=== PATIENT | female | born 1990 | race Caucasian/White ===

== ENCOUNTER 2018-01-25 19:13 | Emergency (ER) | payer MEDICAID ==
[~2018-01-25] VITALS: Ht 165.1 cm; Wt 96.0 kg
[2018-01-25] MEDS ORDERED: normal saline 1000ML IV soln IVB ONE (21:45)
[2018-01-25] MEDS ORDERED: TETanus/Pertussis (Acell)/Diphther VAC/PF (Tdap-Adult) 0.5ml syringe IM ONE (21:50)
[2018-01-25 22:22] LABS: BASOPHILS % (AUTO) 0.3 % (0-1); EOSINOPHILS # (AUTO) 0.1 X10'3 (0-0.9); EOSINOPHILS % (AUTO) 1.1 % (0-6); HEMATOCRIT 42.3 % (35.0-45.0); LYMPHOCYTES # (AUTO) 2.9 X10'3 (1.1-4.8); LYMPHOCYTES % (AUTO) 37.2 % (21-51); MEAN CORPUSCULAR HEMOGLOBIN 26.7 PG (27.0-31.0); MEAN CORPUSCULAR HGB CONC 33.1 % (33.0-36.5); MEAN CORPUSCULAR VOLUME 80.5 FL (78-98); MEAN PLATELET VOLUME 7.2 FL (7.4-10.4); MONOCYTES # (AUTO) 0.3 X10'3 (0-0.9); MONOCYTES % (AUTO) 3.8 % (2-12); NEUTROPHILS # (AUTO) 4.5 X10'3 (1.8-7.7); NEUTROPHILS % (AUTO) 57.6 % (42-75); PLATELET COUNT 356 X10'3 (140-440); RED BLOOD COUNT 5.25 X10'6 (4.20-5.60); RED CELL DISTRIBUTION WIDTH 14.7 % (11.5-14.5); WHITE BLOOD COUNT 7.9 X10'3 (4.5-11.0)
[2018-01-25 22:36] LABS: ALANINE AMINOTRANSFERASE 54 U/L (12-78); ALBUMIN 3.9 G/DL (3.4-5.0); ALKALINE PHOSPHATASE 138 IU/L (46-116); ANION GAP 15 (8-16); ASPARTATE AMINO TRANSFERASE 33 U/L (10-37); BILIRUBIN,TOTAL 0.2 MG/DL (0.1-1.0); BLOOD UREA NITROGEN 13 MG/DL (7-18); BUN/CREATININE RATIO 13.3 (6.6-38.0); CALCIUM 9.2 MG/DL (8.5-10.1); CHLORIDE 108 MMOL/L (99-107); CREATININE 0.98 MG/DL (0.40-0.90); GLUCOSE 78 MG/DL (70-104); SODIUM 145 MMOL/L (135-145); TOTAL CARBON DIOXIDE 21.8 MMOL/L (24-32); TOTAL PROTEIN 7.9 G/DL (6.4-8.2); eGFR 68 ML/MIN
[2018-01-25 22:45] LABS: ETHANOL 0.299 GM/DL (0.0-0.010)
[2018-01-25 22:57] LABS: HCG SERUM QL NEGATIVE
[2018-01-25 23:18] VITALS: BP 124/79
[2018-01-26 00:37] LABS: CLARITY,URINE CLEAR (Clear); COLOR,URINE YELLOW (Yellow); GLUCOSE, URINE NEGATIVE (Neg); KETONES,URINE TRACE mg/dl (Neg); LEUKOCYTE ESTERASE ,URINE NEGATIVE (Neg); NITRITES, URINE NEGATIVE (Neg); OCCULT BLOOD,URINE NEGATIVE (Neg); PH,URINE 5.5 (4.8-8.0); PROTEIN,URINE NEGATIVE (Neg); UROBILINOGEN,URINE 0.2 E.U/dL (0.2-1.0)
[2018-01-26 00:41] LABS: UA COLLECTION TYPE STRAIGHT CATH
[2018-01-26 00:51] LABS: URINE AMPHETAMINE SCREEN NEGATIVE (Neg); URINE BARBITUATE SCREEN NEGATIVE (Neg); URINE BENZODIAZEPINES SCREEN NEGATIVE (Neg); URINE CANNABINOID SCREEN NEGATIVE (Neg); URINE COCAINE SCREEN NEGATIVE (Neg); URINE METHADONE SCREEN NEGATIVE (Neg); URINE OPIATE SCREEN NEGATIVE (Neg); URINE PHENCYCLIDINE SCREEN NEGATIVE (Neg)
== END 2018-01-26 06:23 | disposition home or self-care (01) ==
LOC: ER 19:14
DX: R41.82 Altered mental status, unspecified (principal); F10.129 Alcohol abuse with intoxication, unspecified; J45.909 Unspecified asthma, uncomplicated; F32.9 Major depressive disorder, single episode, unspecified; F41.9 Anxiety disorder, unspecified; F17.200 Nicotine dependence, unspecified, uncomplicated; Z91.040 Latex allergy status; Z90.49 Acquired absence of other specified parts of digestive tract; Y90.9 Presence of alcohol in blood, level not specified
CPT/HCPCS: 36415; 70450; 80053; 80305; 80320; 81003; 84443; 84703; 85025; 90471; 90715; 96360; 99285; J7030

== ENCOUNTER 2018-01-28 01:01 | Emergency (ER) | payer MEDICAID, OTHER | END 2018-01-28 01:35 | disposition left against medical advice (07) | LOC: ER 01:03 | DX: R41.0 Disorientation, unspecified (principal); Z53.21 Procedure and treatment not carried out due to patient leaving prior to being seen by health care provider ==

== ENCOUNTER 2018-03-18 15:39 | Emergency (ER) | payer OTHER ==
[~2018-03-18] VITALS: Ht 565.3 cm; Wt 90.0 kg
[2018-03-18 15:44] VITALS: BP 138/87
[2018-03-18 17:41] LABS: BASOPHILS % (AUTO) 0.7 % (0-1); EOSINOPHILS # (AUTO) 0.1 X10'3 (0-0.9); EOSINOPHILS % (AUTO) 2.2 % (0-6); HEMATOCRIT 38.9 % (35.0-45.0); HEMOGLOBIN 12.9 g/dl (12.0-16.0); LYMPHOCYTES # (AUTO) 2.6 X10'3 (1.1-4.8); LYMPHOCYTES % (AUTO) 41.6 % (21-51); MEAN CORPUSCULAR HEMOGLOBIN 26.4 PG (27.0-31.0); MEAN CORPUSCULAR HGB CONC 33.1 % (33.0-36.5); MEAN CORPUSCULAR VOLUME 79.9 FL (78-98); MEAN PLATELET VOLUME 6.3 FL (7.4-10.4); MONOCYTES # (AUTO) 0.6 X10'3 (0-0.9); MONOCYTES % (AUTO) 9.2 % (2-12); NEUTROPHILS # (AUTO) 2.9 X10'3 (1.8-7.7); NEUTROPHILS % (AUTO) 46.3 % (42-75); PLATELET COUNT 213 X10'3 (140-440); RED BLOOD COUNT 4.88 X10'6 (4.20-5.60); RED CELL DISTRIBUTION WIDTH 22.4 % (11.5-14.5); WHITE BLOOD COUNT 6.2 X10'3 (4.5-11.0)
[2018-03-18 17:56] LABS: ALANINE AMINOTRANSFERASE 29 U/L (12-78); ALBUMIN 3.5 G/DL (3.4-5.0); ALKALINE PHOSPHATASE 100 IU/L (46-116); ANION GAP 11 (8-16); ASPARTATE AMINO TRANSFERASE 29 U/L (10-37); BILIRUBIN,TOTAL 0.2 MG/DL (0.1-1.0); BLOOD UREA NITROGEN 8 MG/DL (7-18); BUN/CREATININE RATIO 11.6 (6.6-38.0); CALCIUM 8.2 MG/DL (8.5-10.1); CHLORIDE 107 MMOL/L (99-107); CREATININE 0.69 MG/DL (0.40-0.90); GLUCOSE 110 MG/DL (70-104); POTASSIUM 3.7 MMOL/L (3.5-5.1); SODIUM 141 MMOL/L (135-145); TOTAL CARBON DIOXIDE 23.5 MMOL/L (24-32); TOTAL PROTEIN 7.1 G/DL (6.4-8.2); eGFR > 90 ML/MIN
[2018-03-18 18:06] LABS: ETHANOL 0.269 GM/DL (0.0-0.010); MAGNESIUM 2.2 MG/DL (1.5-2.4)
[2018-03-18 18:13] LABS: ANISOCYTOSIS 3+; MICROCYTOSIS 1+; PLATELET ESTIMATE NORMAL
[2018-03-18] MEDS ORDERED: ONDA4TAB9 PO (20:58)
[2018-03-18] MEDS ORDERED: CHLO25CA10 PO (20:58)
== END 2018-03-18 21:14 | disposition home or self-care (01) ==
LOC: ER 15:39
DX: F10.129 Alcohol abuse with intoxication, unspecified (principal); F32.9 Major depressive disorder, single episode, unspecified; F41.0 Panic disorder [episodic paroxysmal anxiety]; J45.909 Unspecified asthma, uncomplicated; F17.200 Nicotine dependence, unspecified, uncomplicated; Z90.49 Acquired absence of other specified parts of digestive tract; Z98.51 Tubal ligation status; Z98.84 Bariatric surgery status; Z91.040 Latex allergy status; Y90.9 Presence of alcohol in blood, level not specified
CPT/HCPCS: 36415; 80053; 80320; 83735; 84443; 84484; 85025; 93005; 99285

== ENCOUNTER 2018-03-24 12:10 | Emergency (ER) | payer OTHER ==
[~2018-03-24] VITALS: Ht 568.5 cm; Wt 90.0 kg
[~2018-03-24 12:10] MED LIST: CHLO25CA10 PO; ONDA4TAB9 PO
[2018-03-24 12:26] VITALS: BP 126/97
[2018-03-24 13:52] LABS: BASOPHILS % (AUTO) 0.3 % (0-1); EOSINOPHILS # (AUTO) 0.1 X10'3 (0-0.9); EOSINOPHILS % (AUTO) 1.2 % (0-6); HEMATOCRIT 37.6 % (35.0-45.0); HEMOGLOBIN 12.5 g/dl (12.0-16.0); LYMPHOCYTES # (AUTO) 2.5 X10'3 (1.1-4.8); LYMPHOCYTES % (AUTO) 57.1 % (21-51); MEAN CORPUSCULAR HEMOGLOBIN 26.4 PG (27.0-31.0); MEAN CORPUSCULAR HGB CONC 33.2 % (33.0-36.5); MEAN CORPUSCULAR VOLUME 79.4 FL (78-98); MONOCYTES # (AUTO) 0.4 X10'3 (0-0.9); MONOCYTES % (AUTO) 8.9 % (2-12); NEUTROPHILS # (AUTO) 1.4 X10'3 (1.8-7.7); NEUTROPHILS % (AUTO) 32.5 % (42-75); PLATELET COUNT 314 X10'3 (140-440); RED BLOOD COUNT 4.73 X10'6 (4.20-5.60); RED CELL DISTRIBUTION WIDTH 21.9 % (11.5-14.5); WHITE BLOOD COUNT 4.3 X10'3 (4.5-11.0)
[2018-03-24 14:08] LABS: ALANINE AMINOTRANSFERASE 41 U/L (12-78); ALBUMIN 3.4 G/DL (3.4-5.0); ALBUMIN/GLOBULIN RATIO 0.9 (1.1-1.5); ALKALINE PHOSPHATASE 113 IU/L (46-116); ANION GAP 11 (8-16); ASPARTATE AMINO TRANSFERASE 23 U/L (10-37); BILIRUBIN,TOTAL 0.2 MG/DL (0.1-1.0); BLOOD UREA NITROGEN 7 MG/DL (7-18); BUN/CREATININE RATIO 10.6 (6.6-38.0); CALCIUM 8.2 MG/DL (8.5-10.1); CHLORIDE 104 MMOL/L (99-107); CREATININE 0.66 MG/DL (0.40-0.90); GLUCOSE 87 MG/DL (70-104); SODIUM 138 MMOL/L (135-145); TOTAL CARBON DIOXIDE 22.6 MMOL/L (24-32); TOTAL PROTEIN 7.1 G/DL (6.4-8.2); eGFR > 90 ML/MIN
[2018-03-24] MEDS ORDERED: DIPH25CA83 PO (14:19)
== END 2018-03-24 14:32 | disposition home or self-care (01) ==
LOC: ER 12:10
DX: L29.9 Pruritus, unspecified (principal); J45.909 Unspecified asthma, uncomplicated; Z90.49 Acquired absence of other specified parts of digestive tract; Z98.51 Tubal ligation status; Z91.040 Latex allergy status
CPT/HCPCS: 36415; 80053; 85025; 99284

== ENCOUNTER 2018-03-30 05:14 | Emergency (ER) | payer OTHER ==
[~2018-03-30] VITALS: Ht 162.6 cm; Wt 90.0 kg
[~2018-03-30 05:14] MED LIST changes: +DIPH25CA83 PO
[2018-03-30] MEDS ORDERED: famotidine/PF 10 mg/ml inj IV ONE (05:20)
[2018-03-30] MEDS ORDERED: dexamethasone 4mg/ml inj IV ONE (05:20)
[2018-03-30] MEDS ORDERED: LORazepam 2 mg/ml vial IV ONE (05:20)
[2018-03-30] MEDS ORDERED: normal saline 1000ml 1,000 ML IV ONE (05:25)
[2018-03-30] MEDS ORDERED: tranexamic acid 100mg/ml inj. IV ONE (05:25)
[2018-03-30] MEDS ORDERED: tranexamic acid inj. 800 MG in normal saline 100ml IV soln 100 ML IV ONE (05:35)
[2018-03-30 05:37] LABS: BASOPHILS % (AUTO) 0.3 % (0-1); EOSINOPHILS # (AUTO) 0.2 X10'3 (0-0.9); EOSINOPHILS % (AUTO) 2.2 % (0-6); HEMATOCRIT 38.2 % (35.0-45.0); HEMOGLOBIN 12.6 g/dl (12.0-16.0); LYMPHOCYTES # (AUTO) 5.5 X10'3 (1.1-4.8); LYMPHOCYTES % (AUTO) 50.9 % (21-51); MEAN CORPUSCULAR HGB CONC 32.9 % (33.0-36.5); MEAN CORPUSCULAR VOLUME 79.2 FL (78-98); MONOCYTES # (AUTO) 0.9 X10'3 (0-0.9); MONOCYTES % (AUTO) 8.3 % (2-12); NEUTROPHILS # (AUTO) 4.1 X10'3 (1.8-7.7); NEUTROPHILS % (AUTO) 38.3 % (42-75); PLATELET COUNT 522 X10'3 (140-440); RED BLOOD COUNT 4.83 X10'6 (4.20-5.60); RED CELL DISTRIBUTION WIDTH 21.9 % (11.5-14.5); WHITE BLOOD COUNT 10.8 X10'3 (4.5-11.0)
[2018-03-30 05:46] VITALS: BP 134/79
[2018-03-30 05:52] LABS: ALANINE AMINOTRANSFERASE 30 U/L (12-78); ALBUMIN 3.7 G/DL (3.4-5.0); ALKALINE PHOSPHATASE 125 IU/L (46-116); ANION GAP 14 (8-16); ASPARTATE AMINO TRANSFERASE 39 U/L (10-37); BILIRUBIN,TOTAL 0.6 MG/DL (0.1-1.0); BLOOD UREA NITROGEN 9 MG/DL (7-18); BUN/CREATININE RATIO 12.2 (6.6-38.0); CALCIUM 8.4 MG/DL (8.5-10.1); CHLORIDE 106 MMOL/L (99-107); CREATININE 0.74 MG/DL (0.40-0.90); GLUCOSE 98 MG/DL (70-104); POTASSIUM 3.3 MMOL/L (3.5-5.1); SODIUM 144 MMOL/L (135-145); TOTAL PROTEIN 7.4 G/DL (6.4-8.2); eGFR > 90 ML/MIN
[2018-03-30 06:06] LABS: ETHANOL 0.312 GM/DL (0.0-0.010)
== END 2018-03-30 05:59 | disposition left against medical advice (07) ==
LOC: ER 05:15
DX: T78.40XA Allergy, unspecified, initial encounter (principal); J45.909 Unspecified asthma, uncomplicated; Z98.51 Tubal ligation status; Z90.49 Acquired absence of other specified parts of digestive tract; Z98.84 Bariatric surgery status; Z91.040 Latex allergy status; Y92.9 Unspecified place or not applicable
CPT/HCPCS: 36415; 80053; 80320; 85025; 96365; 96375; 99284; J1100; J2060; J3490; J7030

== ENCOUNTER 2018-06-17 17:15 | Emergency (ER) | payer MEDICAID, OTHER ==
[~2018-06-17 17:15] MED LIST changes: -ONDA4TAB9 PO
[2018-06-17 17:20] VITALS: BP 126/76
[2018-06-17] MEDS ORDERED: tetanus & diphtheria toxoid (Td) vaccine 0.5ml IMVAC ONE (18:45)
[2018-06-17] MEDS ORDERED: DOXY100C43 PO (19:06)
[2018-06-17] MEDS ORDERED: TETanus/Pertussis (Acell)/Diphther VAC/PF (Tdap-Adult) 0.5ml syringe IMVAC ONE (21:35)
== END 2018-06-17 19:19 | disposition home or self-care (01) ==
LOC: ER 17:16
DX: S01.81XA Laceration without foreign body of other part of head, initial encounter (principal); S60.221A Contusion of right hand, initial encounter; L03.90 Cellulitis, unspecified; J45.909 Unspecified asthma, uncomplicated; Z98.0 Intestinal bypass and anastomosis status; Z98.51 Tubal ligation status; Z90.49 Acquired absence of other specified parts of digestive tract; Z98.890 Other specified postprocedural states; Z91.040 Latex allergy status; Z79.899 Other long term (current) drug therapy; X99.1XXA Assault by knife, initial encounter; Y93.89 Activity, other specified; Y92.002 Bathroom of unspecified non-institutional (private) residence as the place of occurrence of the external cause; Y99.8 Other external cause status
CPT/HCPCS: 70450; 90715; 99284

== ENCOUNTER 2018-06-18 16:32 | Emergency (ER) | payer MEDICAID ==
[~2018-06-18] VITALS: Ht 165.1 cm; Wt 89.1 kg
[~2018-06-18 16:32] MED LIST changes: +DOXY100C43 PO
[2018-06-18 16:43] VITALS: BP 120/79
== END 2018-06-18 20:15 | disposition left against medical advice (07) ==
LOC: ER 16:32
DX: F10.239 Alcohol dependence with withdrawal, unspecified (principal); Z53.21 Procedure and treatment not carried out due to patient leaving prior to being seen by health care provider; Y90.9 Presence of alcohol in blood, level not specified

== ENCOUNTER 2018-07-31 20:33 | Emergency (ER) | payer MEDICAID, OTHER ==
[~2018-07-31] VITALS: Ht 162.6 cm; Wt 76.0 kg
[~2018-07-31 20:33] MED LIST changes: -DOXY100C43 PO
--- NOTE | 2018-07-31 20:47 | NUR ---
PATIENT AMBULATED FROM TRIAGE TO ROOM 19 AND SAT IN CHAIR. AMBULATED WNL.
[2018-07-31] MEDS ORDERED: normal saline 1000ML IV soln IVB ONE (21:30)
[2018-07-31] MEDS ORDERED: ondansetron/PF 4mg/2ml inj IV ONE (21:30)
[2018-07-31] MEDS ORDERED: pantoprazole 40 MG vial IV ONE (21:30)
[2018-07-31 22:09] LABS: HEMATOCRIT 38.7 % (35.0-45.0); HEMOGLOBIN 12.9 g/dl (12.0-16.0); MEAN CORPUSCULAR HEMOGLOBIN 27.5 PG (27.0-31.0); MEAN CORPUSCULAR HGB CONC 33.3 % (33.0-36.5); MEAN CORPUSCULAR VOLUME 82.5 FL (78-98); RED BLOOD COUNT 4.69 X10'6 (4.20-5.60)
[2018-07-31 22:16] LABS: ALANINE AMINOTRANSFERASE 119 U/L (12-78); ALBUMIN 3.8 G/DL (3.4-5.0); ALBUMIN/GLOBULIN RATIO 1.1 (1.1-1.5); ALKALINE PHOSPHATASE 133 IU/L (46-116); ANION GAP 14 (8-16); ASPARTATE AMINO TRANSFERASE 187 U/L (10-37); BILIRUBIN,TOTAL 0.6 MG/DL (0.1-1.0); BLOOD UREA NITROGEN 9 MG/DL (7-18); BUN/CREATININE RATIO 13.8 (6.6-38.0); CALCIUM 8.4 MG/DL (8.5-10.1); CHLORIDE 102 MMOL/L (99-107); CREATININE 0.65 MG/DL (0.40-0.90); GLUCOSE 88 MG/DL (70-104); LIPASE 92 U/L (73-393); SODIUM 141 MMOL/L (135-145); TOTAL CARBON DIOXIDE 25.4 MMOL/L (24-32); TOTAL PROTEIN 7.4 G/DL (6.4-8.2); eGFR > 90 ML/MIN
[2018-07-31 22:25] LABS: TOTAL CELLS COUNTED 100
[2018-07-31 22:26] LABS: ANISOCYTOSIS 2+; PLATELET ESTIMATE DECREASED
[2018-07-31] MEDS ORDERED: PANT-47 PO (22:33)
[2018-07-31 22:53] VITALS: BP 109/61
== END 2018-07-31 23:15 | disposition home or self-care (01) ==
LOC: ER 20:33
DX: F10.120 Alcohol abuse with intoxication, uncomplicated (principal); K29.20 Alcoholic gastritis without bleeding; J45.909 Unspecified asthma, uncomplicated; F17.200 Nicotine dependence, unspecified, uncomplicated; Z90.49 Acquired absence of other specified parts of digestive tract; Z98.51 Tubal ligation status; Z91.040 Latex allergy status
CPT/HCPCS: 36415; 80053; 83690; 85025; 96361; 96374; 96375; 99283; C9113; J2405; J7030

== ENCOUNTER 2018-08-02 15:12 | Emergency (ER) | payer MEDICAID, OTHER ==
[~2018-08-02] VITALS: Ht 162.6 cm; Wt 87.0 kg
[~2018-08-02 15:12] MED LIST changes: +PANT-47 PO
[2018-08-02] MEDS ORDERED: charcoal/sorbitol 50gm/240ml suspension PO ONE (15:20)
--- NOTE | 2018-08-02 15:41 | NUR ---
Patient uvaldo flores. patient states she just wants to go home and that she lives with her father.
[2018-08-02 15:43] LABS: HEMATOCRIT 34.8 % (35.0-45.0); HEMOGLOBIN 11.4 g/dl (12.0-16.0); MEAN CORPUSCULAR HEMOGLOBIN 27.2 PG (27.0-31.0); MEAN CORPUSCULAR HGB CONC 32.7 g/dL (33.0-36.5); MEAN CORPUSCULAR VOLUME 83.2 FL (78-98); MEAN PLATELET VOLUME 6.6 FL (7.4-10.4); PLATELET COUNT 65 X10'3 (140-440); RED BLOOD COUNT 4.18 X10'6 (4.20-5.60); RED CELL DISTRIBUTION WIDTH 18.9 % (11.5-14.5); WHITE BLOOD COUNT 3.2 X10'3 (4.5-11.0)
[2018-08-02 15:59] LABS: ALANINE AMINOTRANSFERASE 75 U/L (12-78); ALKALINE PHOSPHATASE 110 IU/L (46-116); ANION GAP 10 (8-16); ASPARTATE AMINO TRANSFERASE 77 U/L (10-37); BILIRUBIN,TOTAL 0.3 MG/DL (0.1-1.0); BLOOD UREA NITROGEN 9 MG/DL (7-18); BUN/CREATININE RATIO 14.8 (6.6-38.0); CALCIUM 7.2 MG/DL (8.5-10.1); CHLORIDE 108 MMOL/L (99-107); CREATININE 0.61 MG/DL (0.40-0.90); GLUCOSE 88 MG/DL (70-104); POTASSIUM 3.5 MMOL/L (3.5-5.1); SODIUM 144 MMOL/L (135-145); TOTAL CARBON DIOXIDE 25.9 MMOL/L (24-32); eGFR > 90 ML/MIN
[2018-08-02 16:08] LABS: ACETAMINOPHEN < 2.0 UG/ML (10-30)
[2018-08-02] MEDS ORDERED: LURA40TA3 PO (16:13)
[2018-08-02] MEDS ORDERED: BENZ-16 PO (16:18)
[2018-08-02] MEDS ORDERED: TRAZ-218 PO (16:18)
[2018-08-02] MEDS ORDERED: [UNRECOGNIZED DRUG - CODE] PO (16:18)
[2018-08-02] MEDS ORDERED: ALBU18HF2 INH (16:18)
[2018-08-02] MEDS ORDERED: normal saline 1000ml 1,000 ML IV ONE (16:25)
[2018-08-02 16:28] LABS: ANISOCYTOSIS 2+; PLATELET ESTIMATE DECREASED; TOTAL CELLS COUNTED 100
[2018-08-02 17:02] LABS: ETHANOL 0.382 GM/DL (0.0-0.010)
[2018-08-02] MEDS ORDERED: BENZ200C53 PO (17:02)
[2018-08-02 17:28] LABS: CLARITY,URINE SLIGHTLY CLOUDY (Clear); COLOR,URINE STRAW (Yellow); GLUCOSE, URINE NEGATIVE (Neg); KETONES,URINE NEGATIVE (Neg); LEUKOCYTE ESTERASE ,URINE NEGATIVE (Neg); NITRITES, URINE NEGATIVE (Neg); OCCULT BLOOD,URINE NEGATIVE (Neg); PH,URINE 5.5 (4.8-8.0); PROTEIN,URINE NEGATIVE (Neg); URINE HCG NEGATIVE (NEG); UROBILINOGEN,URINE 0.2 E.U/dL (0.2-1.0)
[2018-08-02 17:40] LABS: MUCUS STRANDS FEW /LPF (Neg); SQUAMOUS EPITHELIAL CELL,UR MODERATE /LPF (FEW); UA COLLECTION TYPE NON-SPECIFIED; URINE AMPHETAMINE SCREEN NEGATIVE (Neg); URINE BARBITUATE SCREEN NEGATIVE (Neg); URINE BENZODIAZEPINES SCREEN NEGATIVE (Neg); URINE CANNABINOID SCREEN NEGATIVE (Neg); URINE COCAINE SCREEN NEGATIVE (Neg); URINE METHADONE SCREEN NEGATIVE (Neg); URINE OPIATE SCREEN NEGATIVE (Neg); URINE PHENCYCLIDINE SCREEN NEGATIVE (Neg)
[2018-08-02 17:41] LABS: BACTERIA,URINE 2+ /HPF (Neg); RBC,URINE 0-2 /HPF (0-2); WBC,URINE 0-4 /HPF (0-4)
--- NOTE | 2018-08-02 18:46 | NUR ---
Patient lying on her back with eyes closed, equal rise and fall of chest.
--- NOTE | 2018-08-02 20:42 | NUR ---
The patient was moved to the ER overflow area to bed #27. She was argumentative and uncooperative. She is demanding to go home. Staff redirected behavior and reviewed the plan of the care with her.
[2018-08-02] MEDS ORDERED: LORazepam 1 MG tablet PO ONE (21:05)
--- NOTE | 2018-08-02 21:05 | NUR ---
The patient has been cleared by poison control.
--- NOTE | 2018-08-02 21:06 | NUR ---
The patient is calmer and cooperative. She reports drinking at least a fifth of vodka per day every day. She is verbalizing a desire to get help with her drinking. She denies that she suicidal or that she took an overdose. She is also beginning to have hand tremors and is asking for medication. Dr. Garcia made aware and orders received. Vital Signs 97.9,92,18,124/72
--- NOTE | 2018-08-02 22:00 | NUR ---
Currently the patient appears to be asleep
--- NOTE | 2018-08-03 00:16 | NUR ---
The patient appears to be asleep
--- NOTE | 2018-08-03 01:57 | NUR ---
The patient appears to be sleeping
--- NOTE | 2018-08-03 04:54 | NUR ---
telepsych referral made. The patient is awake and asking for ativan
--- NOTE | 2018-08-03 06:03 | NUR ---
Report to telepsychiatrist
[2018-08-03] MEDS ORDERED: albuterol 2.5 MG/3 ML nebule NEB PRN (06:40)
[2018-08-03] MEDS ORDERED: guaiFENesin 200 MG/10 ML oral syrup UD cup PO PRN (06:40)
[2018-08-03] MEDS ORDERED: benzonatate 100mg capsule PO PRN (06:40)
[2018-08-03] MEDS ORDERED: calcium carbonate 500mg tablet PO ONE (07:00)
--- NOTE | 2018-08-03 07:57 | NUR ---
Discharge Note: Pt discharged at 0750 ambulatory, escorted from the unit by JORGE ALBERTO Queen and JORGE ALBERTO Owens. ETOH symptoms resolved. Pt denies SI, A/VH, anxiety, and depression. No S&S of distress. Discontinued pt's PIV in L A/C, catheter tip intact, no pain, redness, or edema. Pt tolerated well. Possessions inventoried with JORGE ALBERTO Queen, pt states she has all possessions and possessions sent with pt. Pt's medications retrieved from the pharmacy and sent with pt.
[2018-08-03 08:47] VITALS: BP 111/66
[2018-08-03] MEDS ORDERED: lurasidone 20mg tablet PO SCH (17:00)
[2018-08-03] MEDS ORDERED: traZODone 50mg tablet PO SCH (21:00)
== END 2018-08-03 07:50 | disposition home or self-care (01) ==
LOC: ER 15:12
DX: T14.91XA Suicide attempt, initial encounter (principal); T39.1X2A Poisoning by 4-Aminophenol derivatives, intentional self-harm, initial encounter; F10.129 Alcohol abuse with intoxication, unspecified; J45.909 Unspecified asthma, uncomplicated; Z90.49 Acquired absence of other specified parts of digestive tract; Z98.0 Intestinal bypass and anastomosis status; Z98.51 Tubal ligation status; Z98.890 Other specified postprocedural states; Z91.040 Latex allergy status; Z79.899 Other long term (current) drug therapy; Y90.9 Presence of alcohol in blood, level not specified; Y92.89 Other specified places as the place of occurrence of the external cause
CPT/HCPCS: 36415; 80053; 80305; 80320; 80329; 81001; 81025; 84443; 85025; 93005; 99284; J7030

== ENCOUNTER 2018-08-07 14:44 | Emergency (ER) | payer MEDICAID ==
[~2018-08-07] VITALS: Ht 162.6 cm; Wt 78.0 kg
[~2018-08-07 14:44] MED LIST changes: +ALBU18HF2 INH; +BENZ200C53 PO; -CHLO25CA10 PO; -DIPH25CA83 PO; +LURA40TA3 PO; -PANT-47 PO; +TRAZ-218 PO; +[UNRECOGNIZED DRUG - CODE] PO
[2018-08-07 15:24] VITALS: BP 144/96
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
[2018-08-07] MEDS ORDERED: GABA-532 PO (16:25)
== END 2018-08-07 16:58 ==
LOC: ER 14:45
DX: F10.929 Alcohol use, unspecified with intoxication, unspecified (principal); J45.909 Unspecified asthma, uncomplicated; Z90.49 Acquired absence of other specified parts of digestive tract; Z98.51 Tubal ligation status; Z91.040 Latex allergy status
CPT/HCPCS: 99283

== ENCOUNTER 2018-10-29 20:21 | Emergency (ER) | payer MEDICAID ==
[~2018-10-29] VITALS: Ht 162.6 cm; Wt 85.0 kg
[~2018-10-29 20:21] MED LIST changes: +GABA-532 PO
[2018-10-29] MEDS ORDERED: LOPE-155 PO (22:00)
[2018-10-29] MEDS ORDERED: acetaminophen 325mg tablet PO ONE (22:00)
[2018-10-29] MEDS ORDERED: ONDA4TAB6 PO (22:00)
[2018-10-29 22:07] VITALS: BP 128/82
[2018-10-30] MEDS ORDERED: GABA300C PO (11:07)
[2018-10-30] MEDS ORDERED: LORA1TAB PO (11:07)
== END 2018-10-29 22:28 | disposition home or self-care (01) ==
LOC: ER 20:21
DX: F10.10 Alcohol abuse, uncomplicated (principal); R45.851 Suicidal ideations; R51 Headache; R42 Dizziness and giddiness; R11.10 Vomiting, unspecified; J45.909 Unspecified asthma, uncomplicated; F41.0 Panic disorder [episodic paroxysmal anxiety]; F41.9 Anxiety disorder, unspecified; F31.9 Bipolar disorder, unspecified; Z91.040 Latex allergy status; Z56.0 Unemployment, unspecified; Z98.51 Tubal ligation status; Z88.6 Allergy status to analgesic agent; Z79.899 Other long term (current) drug therapy; Z98.84 Bariatric surgery status; Z90.49 Acquired absence of other specified parts of digestive tract; Z98.890 Other specified postprocedural states; W18.40XA Slipping, tripping and stumbling without falling, unspecified, initial encounter; Y93.89 Activity, other specified; Y92.89 Other specified places as the place of occurrence of the external cause; Y90.9 Presence of alcohol in blood, level not specified; Y99.8 Other external cause status
CPT/HCPCS: 99284

== ENCOUNTER 2018-10-30 10:52 | Emergency (ER) | payer MEDICAID ==
[~2018-10-30] VITALS: Ht 162.6 cm; Wt 83.0 kg
[~2018-10-30 10:52] MED LIST changes: +LOPE-155 PO; +ONDA4TAB6 PO
[2018-10-30 10:56] VITALS: BP 126/80
[2018-10-30] MEDS ORDERED: GABA300C PO (11:07)
[2018-10-30] MEDS ORDERED: LORA1TAB PO (11:07)
== END 2018-10-30 11:23 | disposition home or self-care (01) ==
LOC: ER 10:53
DX: F10.129 Alcohol abuse with intoxication, unspecified (principal); J45.909 Unspecified asthma, uncomplicated; Z02.89 Encounter for other administrative examinations; Z98.51 Tubal ligation status; Z90.49 Acquired absence of other specified parts of digestive tract; Z98.84 Bariatric surgery status; Z56.0 Unemployment, unspecified; Z91.040 Latex allergy status; Z79.899 Other long term (current) drug therapy; Y90.0 Blood alcohol level of less than 20 mg/100 ml
CPT/HCPCS: 99283

== ENCOUNTER 2018-11-09 18:39 | Emergency (ER) | payer MEDICAID ==
[~2018-11-09] VITALS: Ht 162.6 cm; Wt 82.7 kg
[~2018-11-09 18:39] MED LIST changes: +GABA300C PO; -TRAZ-218 PO; +TRAZ-251 PO
[2018-11-09] MEDS ORDERED: LORA1TAB PO (19:45)
[2018-11-09] MEDS ORDERED: VARE0.5T PO (19:45)
[2018-11-09 19:51] VITALS: BP 152/93
[2018-11-09 19:54] LABS: BASOPHILS % (AUTO) 0.4 % (0-1); EOSINOPHILS # (AUTO) 0.1 X10'3 (0-0.9); EOSINOPHILS % (AUTO) 2.1 % (0-6); HEMATOCRIT 38.5 % (35.0-45.0); HEMOGLOBIN 12.5 g/dl (12.0-16.0); LYMPHOCYTES # (AUTO) 2.3 X10'3 (1.1-4.8); LYMPHOCYTES % (AUTO) 45.7 % (21-51); MEAN CORPUSCULAR HEMOGLOBIN 26.6 PG (27.0-31.0); MEAN CORPUSCULAR HGB CONC 32.5 g/dL (33.0-36.5); MEAN CORPUSCULAR VOLUME 81.6 FL (78-98); MEAN PLATELET VOLUME 6.1 FL (7.4-10.4); MONOCYTES # (AUTO) 0.4 X10'3 (0-0.9); MONOCYTES % (AUTO) 7.8 % (2-12); NEUTROPHILS # (AUTO) 2.2 X10'3 (1.8-7.7); PLATELET COUNT 254 X10'3 (140-440); RED BLOOD COUNT 4.71 X10'6 (4.20-5.60); RED CELL DISTRIBUTION WIDTH 20.8 % (11.5-14.5); WHITE BLOOD COUNT 5.1 X10'3 (4.5-11.0)
[2018-11-09 20:00] LABS: ALANINE AMINOTRANSFERASE 33 U/L (12-78); ALBUMIN 3.5 G/DL (3.4-5.0); ALBUMIN/GLOBULIN RATIO 0.9 (1.1-1.5); ALKALINE PHOSPHATASE 131 IU/L (46-116); ANION GAP 15 (8-16); ASPARTATE AMINO TRANSFERASE 22 U/L (10-37); BILIRUBIN,TOTAL 0.2 MG/DL (0.1-1.0); BLOOD UREA NITROGEN 10 MG/DL (7-18); BUN/CREATININE RATIO 15.4 (6.6-38.0); CALCIUM 8.1 MG/DL (8.5-10.1); CHLORIDE 109 MMOL/L (99-107); CREATININE 0.65 MG/DL (0.40-0.90); GLUCOSE 91 MG/DL (70-104); POTASSIUM 4.2 MMOL/L (3.5-5.1); SODIUM 144 MMOL/L (135-145); TOTAL CARBON DIOXIDE 19.7 MMOL/L (24-32); TOTAL PROTEIN 7.2 G/DL (6.4-8.2); eGFR > 90 ML/MIN
[2018-11-09 20:11] LABS: ETHANOL 0.347 GM/DL (0.0-0.010)
[2018-11-09 20:28] LABS: URINE HCG NEGATIVE (NEG)
[2018-11-09 20:29] LABS: CLARITY,URINE CLOUDY (Clear); COLOR,URINE YELLOW (Yellow); GLUCOSE, URINE NEGATIVE (Neg); KETONES,URINE NEGATIVE (Neg); LEUKOCYTE ESTERASE ,URINE NEGATIVE (Neg); NITRITES, URINE NEGATIVE (Neg); OCCULT BLOOD,URINE NEGATIVE (Neg); PH,URINE 5.5 (4.8-8.0); PROTEIN,URINE NEGATIVE (Neg); UROBILINOGEN,URINE 0.2 E.U/dL (0.2-1.0)
[2018-11-09 20:32] LABS: UA COLLECTION TYPE CLN CATCH MIDSTREAM
[2018-11-09 20:37] LABS: URINE AMPHETAMINE SCREEN NEGATIVE (Neg); URINE BARBITUATE SCREEN NEGATIVE (Neg); URINE BENZODIAZEPINES SCREEN POSITIVE (Neg); URINE CANNABINOID SCREEN NEGATIVE (Neg); URINE COCAINE SCREEN NEGATIVE (Neg); URINE METHADONE SCREEN NEGATIVE (Neg); URINE OPIATE SCREEN NEGATIVE (Neg); URINE PHENCYCLIDINE SCREEN NEGATIVE (Neg)
--- NOTE | 2018-11-09 20:41 | NUR ---
DR RUSHING AT BEDSIDE. PT IS COOPERATIVE WITH QUESTIONING AND ASSESSMENT.
[2018-11-09 20:43] LABS: BACTERIA,URINE 3+ /HPF (Neg); MUCUS STRANDS MANY /LPF (Neg); RBC,URINE NONE SEEN /HPF (0-2)
[2018-11-09 20:44] LABS: HYALINE CASTS 0-3 /LPF (NEGATIVE); SQUAMOUS EPITHELIAL CELL,UR MANY /LPF (FEW)
[2018-11-09] MEDS ORDERED: ONDA8TAB6 PO (20:48)
[2018-11-09 21:29] LABS: PLATELET ESTIMATE NORMAL
[2018-11-09 21:30] LABS: ANISOCYTOSIS 2+
== END 2018-11-09 21:11 | disposition home or self-care (01) ==
LOC: ER 18:41
DX: F10.10 Alcohol abuse, uncomplicated (principal); J45.909 Unspecified asthma, uncomplicated; F17.200 Nicotine dependence, unspecified, uncomplicated; Z98.51 Tubal ligation status; Z98.84 Bariatric surgery status; Z90.49 Acquired absence of other specified parts of digestive tract; Z56.0 Unemployment, unspecified; Z91.040 Latex allergy status; Z79.899 Other long term (current) drug therapy; Y90.0 Blood alcohol level of less than 20 mg/100 ml
CPT/HCPCS: 36415; 80053; 80305; 80320; 81001; 81025; 85025; 99283; 99284

== ENCOUNTER 2019-06-15 12:53 | Emergency (ER) | payer MEDICAID ==
[~2019-06-15] VITALS: Ht 165.1 cm; Wt 94.0 kg
[~2019-06-15 12:53] MED LIST changes: -GABA-532 PO; +GUAI400T91 PO; -LOPE-155 PO; +LOPE-190 PO; +LORA1TAB PO; +ONDA8TAB6 PO; +VARE0.5T PO; -[UNRECOGNIZED DRUG - CODE] PO
[2019-06-15 12:55] VITALS: BP 117/69
[2019-06-15] MEDS ORDERED: BENZ-16 PO (13:14)
[2019-06-15] MEDS ORDERED: AZIT250T PO (13:14)
== END 2019-06-15 14:40 | disposition home or self-care (01) ==
LOC: ER 12:55
DX: J06.9 Acute upper respiratory infection, unspecified (principal); R10.30 Lower abdominal pain, unspecified; J45.909 Unspecified asthma, uncomplicated; F41.9 Anxiety disorder, unspecified; F32.9 Major depressive disorder, single episode, unspecified; F10.99 Alcohol use, unspecified with unspecified alcohol-induced disorder; Z90.49 Acquired absence of other specified parts of digestive tract; Z98.84 Bariatric surgery status; Z98.51 Tubal ligation status; Z56.0 Unemployment, unspecified; Z98.890 Other specified postprocedural states; Z91.040 Latex allergy status; Z79.899 Other long term (current) drug therapy; Y90.9 Presence of alcohol in blood, level not specified
CPT/HCPCS: 99283

== ENCOUNTER 2021-02-28 18:50 | Emergency (ER) | payer OTHER, MEDICAID ==
[~2021-02-28] VITALS: Ht 165.1 cm; Wt 104.5 kg
[~2021-02-28 18:50] MED LIST changes: -BENZ200C53 PO; -GABA300C PO; -GUAI400T91 PO; -LOPE-190 PO; -LORA1TAB PO; -LURA40TA3 PO; +NALT50TA PO; -ONDA4TAB6 PO; -ONDA8TAB6 PO; +QUET100T34 PO; -TRAZ-251 PO; -VARE0.5T PO
[2021-02-28] MEDS ORDERED: LORazepam 1 MG tablet PO ONE (19:25)
[2021-02-28] MEDS ORDERED: normal saline 1000ml 1,000 ML IV ONE ×2 (19:25→21:20)
[2021-02-28] MEDS ORDERED: LORazepam 2 mg/ml vial IV ONE ×2 (20:55→22:40)
[2021-02-28 22:47] LABS: URINE AMPHETAMINE SCREEN NEGATIVE (Neg); URINE BARBITUATE SCREEN NEGATIVE (Neg); URINE BENZODIAZEPINES SCREEN NEGATIVE (Neg); URINE CANNABINOID SCREEN NEGATIVE (Neg); URINE COCAINE SCREEN NEGATIVE (Neg); URINE METHADONE SCREEN NEGATIVE (Neg); URINE OPIATE SCREEN NEGATIVE (Neg); URINE PHENCYCLIDINE SCREEN NEGATIVE (Neg)
[2021-02-28] MEDS ORDERED: GABA300C PO (23:14)
[2021-02-28 23:24] VITALS: BP 132/95
== END 2021-02-28 23:39 | disposition home or self-care (01) ==
LOC: ER 18:51
DX: F10.129 Alcohol abuse with intoxication, unspecified (principal); J45.909 Unspecified asthma, uncomplicated; F41.9 Anxiety disorder, unspecified; F32.9 Major depressive disorder, single episode, unspecified; Z90.49 Acquired absence of other specified parts of digestive tract; Z98.51 Tubal ligation status; Z98.890 Other specified postprocedural states; Z72.89 Other problems related to lifestyle; Z56.0 Unemployment, unspecified; Z91.040 Latex allergy status; Z79.899 Other long term (current) drug therapy; V87.7XXA Person injured in collision between other specified motor vehicles (traffic), initial encounter; Y93.89 Activity, other specified; Y92.89 Other specified places as the place of occurrence of the external cause; Y99.8 Other external cause status; Y90.9 Presence of alcohol in blood, level not specified
CPT/HCPCS: 80305; 93005; 96361; 96374; 99284; J2060; J7030